=== PATIENT | male | born 1990 | race Caucasian/White ===

== ENCOUNTER 2016-07-02 11:19 | Emergency (ER) | payer SELFPAY ==
[~2016-07-02] VITALS: Ht 160 cm; Wt 56.7 kg
[2016-07-02 11:56] VITALS: BP 138/82
[2016-07-02] MEDS ORDERED: SULF1TAB24 PO (12:27)
[2016-07-02] MEDS ORDERED: HYDR-971 PO (12:27)
--- NOTE | 2016-07-02 12:27 | PHYS DOC ---
Past Medical History Past Medical History: No Pertinent History Past Surgical History: No Surgical History Alcohol Use: Occasionally Drug Use: None Adult General Chief Complaint Chief Complaint: INSECT BITE [facility] HPI Patient is a 26 year old male who presents emergency Department complaining of painful, red swollen area to his right thigh is been progressive over the past 5 days. Patient denies any skin injury. He denies any contact use. Denies any direct contact with anyone that has boils or abscesses. He denies any antibiotic use in the past 30 days. Review of Systems Review of Systems Constitutional: Denies fever or chills [] Eyes: Denies change in visual acuity, redness, or eye pain [] HENT: Denies nasal congestion or sore throat [] Respiratory: Denies cough or shortness of breath [] Cardiovascular: No additional information not addressed in HPI [] GI: Denies abdominal pain, nausea, vomiting, bloody stools or diarrhea [] : Denies dysuria or hematuria [] Musculoskeletal: Denies back pain or joint pain [] Integument: Denies rash or skin lesions [] Neurologic: Denies headache, focal weakness or sensory changes [] Endocrine: Denies polyuria or polydipsia [] Allergies Allergies Allergies Coded Allergies Type Severity Reaction Last Updated Verified Penicillins Allergy Intermediate Rash 07/02/16 Yes Physical Exam Physical Exam Constitutional: Well developed, well nourished, no acute distress, non-toxic appearance. [] HENT: Normocephalic, atraumatic, bilateral external ears normal, oropharynx moist, no oral exudates, nose normal. [] Eyes: PERRLA, EOMI, conjunctiva normal, no discharge. [] Neck: Normal range of motion, no tenderness, supple, no stridor. [] Cardiovascular:Heart rate regular rhythm, no murmur [] Lungs & Thorax: Bilateral breath sounds clear to auscultation [] Abdomen: Bowel sounds normal, soft, no tenderness, no masses, no pulsatile masses. [] Skin: 2 cm, draining cutaneous abscess to the lateral aspect of patient's right proximal thigh. This does not involve the hip joint. There is a pinpoint area that is draining the purulent material. There is no palpable sinus tracts. Patient's right hip is normal in appearance and he complains of no pain upon range of motion. Back: No tenderness, no CVA tenderness. [] Extremities: No tenderness, no cyanosis, no clubbing, ROM intact, no edema. [] Neurologic: Alert and oriented X 3, normal motor function, normal sensory function, no focal deficits noted. [] Psychologic: Affect normal, judgement normal, mood normal. [] Current Patient Data Vital Signs Vital Signs Date Time Temp Pulse Resp B/P Pulse Ox O2 Delivery O2 Flow Rate FiO2 07/02/16 11:56 97.9 114 20 100 Room Air 97.9 EKG EKG [] Radiology/Procedures Radiology/Procedures Procedure note: 2 cm abscess to the lateral aspect of patient's right proximal thigh was anesthetized with buffered 1% lidocaine. The abscess was incised with an 11 blade scalpel with immediate expression of purulent drainage. The abscess was compressed until no further purulent material was produced. Abscess was packed with quarter-inch iodoform packing. Gauze was used to dress the wound and taped in place. Patient tolerated the procedure well. Course & Med Decision Making Course & Med Decision Making Pertinent Labs and Imaging studies reviewed. (See chart for details) [] Dragon Disclaimer Dragon Disclaimer This electronic medical record was generated, in whole or in part, using a voice recognition dictation system. Departure Departure Impression: Primary Impression: Abscess Disposition: 01 HOME, SELF-CARE Condition: IMPROVED Patient Instructions: Abscess, Care After, Abscess, [id number] Additional Instructions: 1. Take the medication as prescribed. 2. Review the discharge instructions provided for self-care and reasons to return to the emergency department. 3. If packing was placed into the abscess, pull out the packing in 2 days while in the shower. 4. Contact your primary care doctor's office Monday to schedule follow-up appointment for reevaluation that week. Scripts Hydrocodone/Apap 5-325 ([place] 5-325 Tablet)1 Each Tablet1 Tab PO PRN Q6HRS PRN PAIN #15 TAB Prov:KRIS DANEILSON 07/02/16 Sulfamethoxazole/Trimethoprim (Bactrim Ds Tablet)1 Each Tablet1 Each PO BID abscess #20 TAB Prov:KRIS DANIELSON 07/02/16 KRIS DANIELSON Jul 02, 2016 12:27
== END 2016-07-02 12:55 | disposition home or self-care (01) ==
LOC: ER 11:19
DX: L02.415 Cutaneous abscess of right lower limb (principal); Z88.0 Allergy status to penicillin
CPT/HCPCS: 10060; 99283